=== PATIENT | male | born 1975 | race Caucasian/White ===

== ENCOUNTER 2024-01-04 04:17 | Day surgery (SDC) | payer OTHER ==
[2024-01-03 12:03] VITALS: BMI 33.0
[2024-01-04] MEDS ORDERED: MIDAZOLAM HCL 2 MG/2 ML SINGLE DOSE VIAL ONE (11:50)
[2024-01-04] MEDS ORDERED: PROPOFOL 40 ML ONE (11:50)
[2024-01-04] MEDS: ceFAZolin SODIUM 1 GM VIAL IVPB ONE (12:50)
[2024-01-04] MEDS ORDERED: BUPIVACAINE HCL/PF 0.5% (5MG/ML) 10 ML VIAL ONE (12:56)
[2024-01-04] MEDS ORDERED: KETAMINE HCL 200 MG/20 ML VIAL ONE (12:56)
[2024-01-04] MEDS: BUPIVACAINE HCL/PF 0.5% (5MG/ML) 10 ML VIAL IJ ONE (13:02)
[2024-01-04] MEDS: LIDOCAINE HCL 1%, 10 MG/ML (20ML VIAL) INF ONE (13:02)
[2024-01-04 15:03] VITALS: BP 116/63; PULSE 60; RESP 20; TEMP 98.4
[2024-01-04] MEDS ORDERED: ONDANSETRON 4 MG/2 ML VIAL IVPUSH PRN (16:21)
[2024-01-04] MEDS ORDERED: LACTATED RINGERS SOLUTION 1,000 ML IV SCH (16:30)
== END 2024-01-04 15:03 | disposition home or self-care (01) ==
LOC: JASU-SURG 04:17
PROVIDERS: ATTEND Surgery
PROC: 07TH0ZZ Resection of Right Inguinal Lymphatic, Open Approach (ICD-10-PCS; principal; 2024-01-04 10:30)
DX: R59.0 Localized enlarged lymph nodes (principal)
CPT/HCPCS: 88307-TC; 88342-TC; 94760